=== PATIENT | female | born 1940 | race American Indian/Alaskan Native ===

== ENCOUNTER 2018-06-13 04:23 | Inpatient (IN) | payer MEDICARE ==
[2018-06-13] MEDS ORDERED: ASPIRIN PO ONE (05:31)
[2018-06-13 05:56] LABS: Basophils % (Auto) 0.6 % (0.0-1.8); Eosinophils # (Auto) 0.2 K/mm3 (0.0-0.4); Eosinophils % (Auto) 2.7 % (0.0-4.3); Hematocrit 26.2 % (30.3-42.9); Hemoglobin 8.4 gm/dl (10.1-14.3); Lymphocytes % (Auto) 12.8 % (13.4-35.0); Mean Corpuscular HGB Conc 32 % (30-34); Mean Corpuscular Hemoglobin 32 pg (28-32); Mean Corpuscular Volume 99 fl (79-97); Monocytes # (Auto) 0.8 K/mm3 (0.0-0.8); Monocytes % (Auto) 10.2 % (0.0-7.3); Platelet Count 162 K/mm3 (140-440); Red Blood Count 2.64 M/mm3 (3.65-5.03); Red Cell Distribution Width 17.4 % (13.2-15.2)
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
[2018-06-13] MEDS ORDERED: D50W (25GM) Syringe IV ONE (07:17)
[2018-06-13] MEDS ORDERED: HumuLIN R IV ONE (07:17)
[2018-06-13 07:43] LABS: Alanine Aminotransferase 9 units/L (7-56); Albumin 4.3 g/dL (3.9-5)
[2018-06-13 07:50] LABS: Bilirubin,Direct < 0.2 mg/dL (0-0.2)
--- NOTE | 2018-06-13 07:56 | XRay Report ---
AP CHEST: HISTORY: chest pain No comparison. Mild cardiomegaly and mild pulmonary venous congestion are identified. The lungs are generally clear. No evidence for infiltrate, pleural effusion or pneumothorax. Thoracic neural stimulator and right shoulder arthroplasty are noted. IMPRESSION: Mild cardiomegaly and pulmonary venous congestion.
[2018-06-13 08:07] LABS: Chol/HDL Ratio 2.15 %
--- NOTE | 2018-06-13 09:41 | Nuclear Medicine Report ---
LUNG SCAN, VENTILATION AND PERFUSION: History: Chest pain. Technique: 5mci of Tc99m MAA was infused for the perfusion images. 15mci XE 133 gas was inhaled for the ventilatory images. Correlation is made with a chest x-ray dated 06/13/18. Findings: Inhalation of Xenon gas demonstrates a normal distribution of the activity throughout both lungs. The wash out phases show no focal retention of activity. After injection of Technetium 99m macroaggregated albumin gamma camera imaging of the lungs in multiple projections demonstrates normal pulmonary contours with a homogeneous distribution of activity. No focal areas of perfusion deficiency are identified. IMPRESSION: Low probability for pulmonary embolus.
[2018-06-13] MEDS ORDERED: PROCRIT IV PRN (10:54)
[2018-06-13] MEDS ORDERED: HEPARIN IV PRN (10:54)
[2018-06-13] MEDS ORDERED: NACL 0.9% 100 ML IV PRN (10:54)
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
[2018-06-13] MEDS ORDERED: TYLENOL PO PRN (11:34)
[2018-06-13] MEDS ORDERED: ZOFRAN IV PRN (11:34)
[2018-06-13] MEDS ORDERED: APRESOLINE IV PRN (11:34)
[2018-06-13 12:15] LABS: Hepatitis B Core IgM Non-Reactive (NonReactive); Hepatitis B Surface Antigen Non-Reactive (Negative); Hepatitis C Virus Antibody Reactive (NonReactive)
[2018-06-13] MEDS ORDERED: NACL 0.9 (PRIMING MACHINE ONLY DIALYSIS) MC ONE (12:29)
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
[2018-06-13] MEDS: COREG PO SCH (22:18)
[2018-06-14 05:40] LABS: Hematocrit 23.5 % (30.3-42.9); Hemoglobin 7.6 gm/dl (10.1-14.3); Mean Corpuscular HGB Conc 32 % (30-34); Mean Corpuscular Hemoglobin 32 pg (28-32); Mean Corpuscular Volume 99 fl (79-97); Platelet Count 142 K/mm3 (140-440); Red Blood Count 2.37 M/mm3 (3.65-5.03)
[2018-06-14 06:06] LABS: Calcium 8.4 mg/dL (8.4-10.2)
[2018-06-14] MEDS: COREG PO SCH ×2 (10:57→21:56)
[2018-06-14] MEDS: ASPIRIN PO SCH (10:57)
[2018-06-14] MEDS: PROTONIX PO SCH (10:57)
--- NOTE | 2018-06-14 12:38 | Progress Note ---
Assessment and Plan Echo reviewed - EF 65-70%, concentric LVH with proximal septal thickening. Plan for lexiscan MPI stress test in AM. NPO after MN. The patient has been seen in conjunction with Dr. Nevarez who agrees with the assessment and plan of care. - Patient Problems (1) Chest pain Current Visit: Yes Status: Acute (2) End stage renal disease on dialysis Current Visit: Yes Status: Chronic (3) Hyperkalemia Current Visit: Yes Status: Acute (4) Elevated troponin Current Visit: Yes Status: Acute (5) HTN (hypertension) Current Visit: Yes Status: Chronic (6) Hyperlipidemia Current Visit: Yes Status: Chronic (7) Anemia Current Visit: Yes Status: Acute Subjective Date of service: 06/14/18 Principal diagnosis: cp; ESRD Interval history: pt resting comfortably in bed, no current complaints. states chest pain has improved. Objective Last Vital Signs Temp 98.7 F 06/14/18 10:04 Pulse 68 06/14/18 10:57 Resp 20 06/14/18 10:04 BP 144/61 06/14/18 10:57 Pulse Ox 99 06/14/18 10:04 - Physical Examination HEENT: Positive: PERRL, Normocephaly, Mucus Membranes Moist Neck: Positive: neck supple, trachea midline Cardiac: Positive: Reg Rate and Rhythm, S1/S2, Systolic Murmur Lungs: Positive: clear to auscultation Neuro: Positive: Grossly Intact Abdomen: Positive: Soft. Negative: Tender Skin: Positive: Clear. Negative: Rash, Wound Musculoskeletal: No Fluid Collection, No Pain, Normal Range of Motion Extremities: Absent: edema - Labs and Meds CBC 06/14/18 Range/Units 04:59 WBC 4.7 (4.5-11.0) K/mm3 RBC 2.37 L (3.65-5.03) M/mm3 Hgb 7.6 L (10.1-14.3) gm/dl Hct 23.5 L (30.3-42.9) % Plt Count 142 (140-440) K/mm3 Comprehensive Metabolic Panel 06/14/18 Range/Units 04:59 Sodium 141 (137-145) mmol/L Potassium 4.6 (3.6-5.0) mmol/L Chloride 96.9 L (98-107) mmol/L Carbon Dioxide 29 (22-30) mmol/L BUN 35 H (7-17) mg/dL Creatinine 6.6 H (0.7-1.2) mg/dL Glucose 104 H (65-100) mg/dL Calcium 8.4 (8.4-10.2) mg/dL - Imaging and Cardiology EKG: report reviewed, image reviewed Echo: report reviewed - Telemetry EKG Rhythm: Sinus Rhythm - EKG Sinus rhythms and dysrhythmias: sinus rhythm Repolarization changes or abnormalities: nonspecific abnormality, ST segment, and/or T wave
[2018-06-14] MEDS: HEPARIN SUB-Q SCH ×2 (14:35→21:59)
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
[2018-06-15 07:15] LABS: Hematocrit 23.1 % (30.3-42.9); Hemoglobin 7.4 gm/dl (10.1-14.3); Mean Corpuscular HGB Conc 32 % (30-34); Mean Corpuscular Hemoglobin 32 pg (28-32); Mean Corpuscular Volume 98 fl (79-97); Platelet Count 149 K/mm3 (140-440); Red Blood Count 2.35 M/mm3 (3.65-5.03); Red Cell Distribution Width 16.8 % (13.2-15.2)
[2018-06-15 07:28] LABS: Calcium 7.9 mg/dL (8.4-10.2)
[2018-06-15] MEDS ORDERED: LEXISCAN IV ONE ×2 (08:13→08:23)
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
[2018-06-15] MEDS: COREG PO SCH (10:00)
[2018-06-15] MEDS: HEPARIN SUB-Q SCH (10:00)
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
[2018-06-15] MEDS ORDERED: NACL 0.9 (PRIMING MACHINE ONLY DIALYSIS) MC ONE (15:22)
--- NOTE | 2018-06-15 16:30 | Treadmill Report ---
NUCLEAR CARDIAC IMAGING REPORT INDICATION FOR PROCEDURE: Chest pain. Informed consent was obtained. Vasodilator stress was achieved with the intravenous administration of 0.4 mg of Lexiscan per protocol. Rest and stress nuclear cardiac imaging was performed following the intravenous administration of 10 and 28 mCi of technetium 99m Myoview per protocol respectively. Images were obtained in a 180-degree arc from 45 degrees LIRA to 45 degrees LPO. After data acquisition and reconstruction, the images were processed and reoriented into the vertical long, horizontal long, and horizontal short axis slices. A polar color map of the horizontal short axis slices was generated and reviewed. The rotating planar images were reviewed in cinematic format on the computer console. Gated SPECT imaging demonstrates a post-stress left ventricular ejection fraction of 54% with normal wall motion. Myocardial perfusion imaging demonstrates no significant cavity change between stress and rest. No significant stress-induced reversible perfusion defects are seen. Nuclear cardiac imaging demonstrates grossly normal post-stress left ventricular systolic function with no significant evidence for myocardial ischemia or necrosis. [facility]# [id number] DEEPA/SABRA
[2018-06-15] MEDS: PROTONIX PO SCH (18:05)
[2018-06-15] MEDS: ASPIRIN PO SCH (18:05)
[2018-06-15 18:14] VITALS: BP 174/67
[2018-06-17 09:17] LABS: Hepatitis A Antibody IgM NonReactive (NonReactive)
== END 2018-06-15 19:37 | disposition home or self-care (01) | DRG 640 ==
LOC: ED 04:23 → 4A 09:49
PROVIDERS: ADMIT Internal Medicine; ATTEND Internal Medicine
PROC: 5A1D70Z Performance of Urinary Filtration, Intermittent, Less than 6 Hours Per Day (ICD-10-PCS; principal; 2018-06-13)
PROC: 5A1D70Z Performance of Urinary Filtration, Intermittent, Less than 6 Hours Per Day (ICD-10-PCS; 2018-06-15)
DX: E87.5 Hyperkalemia (principal); N18.6 End stage renal disease; I12.0 Hypertensive chronic kidney disease with stage 5 chronic kidney disease or end stage renal disease; R07.9 Chest pain, unspecified; I16.0 Hypertensive urgency; R94.31 Abnormal electrocardiogram [ECG] [EKG]; Z96.651 Presence of right artificial knee joint; D63.1 Anemia in chronic kidney disease; Z95.828 Presence of other vascular implants and grafts; Z90.710 Acquired absence of both cervix and uterus; Z82.49 Family history of ischemic heart disease and other diseases of the circulatory system; Z82.3 Family history of stroke; Z71.89 Other specified counseling; Z99.2 Dependence on renal dialysis
CPT/HCPCS: 36415; 71045; 78452; 78582; 80048; 80061; 80074; 84484; 85025; 85027; 85379; 93005; 93010; 93017; 93306; 96374; 96375; A9502; A9540; A9558; J0885; J1644; J1815; J2785; J7030